=== PATIENT | female | born 1995 | race Caucasian/White ===

== ENCOUNTER 2020-04-09 09:50 | Emergency (ER) | payer OTHER ==
[~2020-04-09] VITALS: Ht 170.2 cm; Wt 70.0 kg
--- NOTE | 2020-04-09 10:15 | NUR ---
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
--- NOTE | 2020-04-09 10:20 | NUR ---
FIRST CONTACT WITH PT. PT STANDING AT BEDSIDE. NAD NOTED. SENT BY PCP FOR EVAL OF POSSIBLE COVID OR PE SECONDARY TO REPORT OF CHEST PAIN. PT REPORTS UPPER BACK "ACHING" THAT RADIATES TO L CHEST. RECENTLY IN CONTACT WITH COVID + PERSON AT WORK AND DX W DVT TWO MONTHS AGO. COMPLIANT WITH XARELTO RX. DENIES PRODUCTIVE COUGH/FEVER/DYSPNEA. BP/SPO2/ECG MONITORING IN PLACE. NSR ON MONITOR. SPO2 >90% ON RA. RR WNL. ERP AT BEDSIDE FOR INITIAL ASSESSMENT.
[2020-04-09 10:36] VITALS: BP 108/62
--- NOTE | 2020-04-09 11:03 | NUR ---
POC IS DC. PT AWARE, OFF MONITORING AND ASKED TO DRESS IN PREPARATION FOR DC
--- NOTE | 2020-04-09 11:21 | NUR ---
DC EDUCATION PROVIDED, PT DEMONSTRATES UNDERSTANDING. PT AMBULATED STEADILY TO DC WITH RN
== END 2020-04-09 11:22 | disposition home or self-care (01) ==
LOC: ED 11:11
DX: R07.9 Chest pain, unspecified (principal); Z20.828 Contact with and (suspected) exposure to other viral communicable diseases; M54.6 Pain in thoracic spine; M79.10 Myalgia, unspecified site
CPT/HCPCS: 36415; 71045; 87635; 93005; 99285